=== PATIENT | male | born 1995 | race Asian ===

== ENCOUNTER 2016-08-23 21:59 | Outpatient (CLI) | payer OTHER | END 2016-08-23 22:04 | disposition short-term general hospital (02) | LOC: AMB 21:59 | DX: S01.81XA Laceration without foreign body of other part of head, initial encounter (principal); Y08.89XA Assault by other specified means, initial encounter; Y92.148 Other place in prison as the place of occurrence of the external cause | CPT/HCPCS: A0425; A0429 ==

== ENCOUNTER 2016-08-23 22:13 | Emergency (ER) | payer OTHER ==
[~2016-08-23] VITALS: Ht 165.1 cm; Wt 64.4 kg
[2016-08-23 22:54] VITALS: BP 120/62; TEMP 98.3
== END 2016-08-23 22:59 | disposition home or self-care (01) ==
LOC: ED 22:13
PROC: 0HQ1XZZ Repair Face Skin, External Approach (ICD-10-PCS; principal; 2016-08-23)
DX: S01.81XA Laceration without foreign body of other part of head, initial encounter (principal); Y04.0XXA Assault by unarmed brawl or fight, initial encounter; Y92.098 Other place in other non-institutional residence as the place of occurrence of the external cause
CPT/HCPCS: 99283